=== PATIENT | male | born 1955 | race Caucasian/White ===

== ENCOUNTER → 2018-11-03 14:40 | Outpatient (CLI) | payer OTHER, SELFPAY | PROVIDERS: Family Provider Physician Assistant Medical; PCP Physician Assistant Medical; Visit Provider Family Medicine | DX: R30.0 Dysuria (principal) | CPT/HCPCS: 87086; 87147 ==

== ENCOUNTER → 2018-12-02 12:37 | Outpatient (CLI) | payer OTHER, SELFPAY ==
--- NOTE | 2018-12-02 | DI.US.S_ITS ---
PROCEDURE: US RENAL COMPLETE INDICATIONS: URINARY FREQUENCY AND DYSURIA TECHNIQUE: Real-time scanning was performed of the kidneys and bladder, with image documentation. COMPARISON: None. FINDINGS: Kidneys: Kidneys are normal in size. Right kidney measures 10.4 cm long; left kidney measures 10.1 cm long. Right renal cortical thickness is 1.6 cm; left renal cortical thickness is 1.1 cm. Renal cortical echotexture is normal. No hydronephrosis or nephrolithiasis. No suspicious solid mass lesions. Bladder: Pre-void bladder volume is 329 mL. Post-void residual is 145 mL. Pre-void images demonstrate no intraluminal masses or stones. On pre-void images, both ureteral jets are noted with color Doppler interrogation. (Of note, ureteral jets may not be detectable in up to 25% of cases due to insufficient differences in specific gravity between ureteral and bladder urine). There is a cystic structure adjacent to the left bladder base, suspicious for a ureterocele. Miscellaneous: No free pelvic fluid. IMPRESSION: 1. Normal ultrasound appearance of kidneys. No renal stone hydronephrosis. 2. Significant post void residual (145 mL). 3. Suspect a left ureterocele. Dictated by: Virginie Mckinley M.D. on 12/02/2018 at 17:06 Approved by: Virginie Mckinley M.D. on 12/02/2018 at 17:08
== END ==
PROVIDERS: PCP Physician Assistant Medical; Visit Provider Family Medicine
DX: R35.0 Frequency of micturition (principal); R30.0 Dysuria
CPT/HCPCS: 76770

== ENCOUNTER → 2019-03-25 09:53 | Outpatient (CLI) | payer OTHER, SELFPAY ==
--- NOTE | 2019-03-25 | DI.RAD.S_ITS ---
PROCEDURE: XR LUMBAR SPINE 2-3V INDICATIONS: BACK PAIN/ LEFT LOWER LEG PAIN TECHNIQUE: 3 views of the lumbar spine were acquired. COMPARISON: [facility], , L-SPINE 2-3 VIEWS, 08/17/2015, 11:44. FINDINGS: Bones: No fracture or focal osseous destruction. Multilevel degenerative endplate sclerosis and spurring. Diffuse facet arthropathy. Grade 1 anterolisthesis of L5 on S1 as before. Moderate narrowing of the L5-S1 disc space. Mild narrowing of the remaining lumbar disc spaces. Lucency projecting at the L5 pars interarticularis suggesting pars defects Soft tissues: Overlying bowel gas pattern is normal. No suspicious soft tissue calcifications. IMPRESSION: Diffuse lumbar spondylosis, most pronounced at L5-S1 where there is grade 1 anterolisthesis. No interval change. Multilevel facet arthropathy. Dictated by: Daryl Agrawal M.D. on 03/25/2019 at 13:40 Approved by: Daryl Agrawal M.D. on 03/25/2019 at 13:42
--- NOTE | 2019-03-25 | DI.RAD.S_ITS ---
PROCEDURE: XR TIBIA FIBULA RT 2V INDICATIONS: BACK PAIN/ LEFT LOWER LEG PAIN TECHNIQUE: 2 views of the tibia and fibula were acquired. COMPARISON: None. FINDINGS: Bones: No fractures or dislocations. No suspicious bony lesions. Soft tissues: No suspicious soft tissue calcifications or masses. IMPRESSION: No fracture Dictated by: Daryl Agrawal M.D. on 03/25/2019 at 12:45 Approved by: Daryl Agrawal M.D. on 03/25/2019 at 12:46
== END ==
PROVIDERS: PCP Family Medicine; Visit Provider Family Medicine
DX: M54.9 Dorsalgia, unspecified (principal); M79.662 Pain in left lower leg; M47.817 Spondylosis without myelopathy or radiculopathy, lumbosacral region; M43.17 Spondylolisthesis, lumbosacral region
CPT/HCPCS: 72100; 73590

== ENCOUNTER → 2019-03-31 18:56 | Outpatient (CLI) | payer OTHER, SELFPAY ==
--- NOTE | 2019-03-31 18:58 | DI.MRI.S_ITS ---
PROCEDURE: MR LUMBAR SPINE WO CON INDICATIONS: LUMBAR SPINE RADICULOPATHY TECHNIQUE: Noncontrast sagittal T1 spin echo and T2 fast echo, sagittal STIR, axial T1 and T2 fast spin echo through the lumbar spine. In cases with scoliosis, additional coronal T2 fast spin echo may be performed. COMPARISON: [facility], , L-SPINE 2-3 VIEWS, 08/17/2015, 11:44. [facility], , XR LUMBAR SPINE 2-3V, 03/25/2019, 10:04. FINDINGS: Image quality: Excellent. Alignment and Curvature: There is grade 1 anterolisthesis seen at L5-S1, with associated bilateral pars defects. Bone Marrow: Marrow is of normal overall signal. No acute vertebral body compression fractures. Scattered foci are seen, which are hyperintense on T1-weighted and T2-weighted imaging, which are most consistent with benign vertebral body hemangiomas. Spinal Cord: Conus medullaris terminates at the L1 level. Visualized cord demonstrates normal signal and size. Paraspinous Soft Tissues: No paravertebral masses. T12-L1: Normal appearance. L1-L2: Normal appearance. L2-L3: The disc height is well-preserved. Loss of disc signal is seen at this level. Mild to moderate disc bulge is seen, which is eccentric to the right. There is mild to moderate right-sided and minimal left-sided neural foraminal narrowing seen. Mild central canal narrowing is seen. There is a focal annular fissure seen posteriorly. L3-L4: The disc height is well-preserved. Loss of disc signal is seen at this level. Mild to moderate disc bulge is seen, which is eccentric to the right. There is mild left-sided and moderate right-sided neural foraminal narrowing seen. Lmti-eo-vpjjvlyn central canal narrowing is seen. L4-L5: Mild loss of disc height is seen. Loss of disc signal is seen. Moderate disc bulge is seen, which is eccentric to the left. [id number]-rg-[id number] facet hypertrophy is seen. There is moderate right-sided and moderate to severe left-sided neural foraminal narrowing seen. There is a degree of compression seen upon the exiting left L4 nerve root. Moderate central canal narrowing is seen. L5-S1: Moderate loss of disc height is seen. Loss of disc signal is seen. Mild to moderate disc bulge is seen. Mild facet joint hypertrophy is seen. There is moderate right-sided and mild left-sided neural foraminal narrowing seen. Mild central canal narrowing is seen. IMPRESSION: Lumbar spine degenerative changes are seen, which are most prominent inferiorly. Dictated by: Jaiden Garcia M.D. on 04/01/2019 at 8:48 Approved by: Jaiden Garcia M.D. on 04/01/2019 at 8:59
== END ==
PROVIDERS: PCP Family Medicine; Visit Provider Family Medicine
DX: M47.26 Other spondylosis with radiculopathy, lumbar region (principal)
CPT/HCPCS: 72148

== ENCOUNTER → 2020-12-12 16:52 | Outpatient (CLI) | payer OTHER, SELFPAY ==
[2020-12-14 13:09] LABS: Lamotrigine Lamictal 14.2 ug/mL (2.0-20.0)
== END ==
PROVIDERS: PCP Family Medicine; Referring Provider Family Medicine; Visit Provider Family Medicine
DX: Z51.81 Encounter for therapeutic drug level monitoring (principal)
CPT/HCPCS: 36415; 80175

== ENCOUNTER 2021-03-08 04:13 | Emergency (ER) | payer OTHER, MEDICARE, SELFPAY ==
[2021-03-08] VITALS (7 sets, daily range): BP systolic 151–153; BP diastolic 72–86; PULSE 65–81; RESP 12–22; TEMP 36.6; O2SAT 94–99; BMI 25.0
--- NOTE | 2021-03-08 04:32 | ED_ITS ---
HPI - Neuro Symptoms/Deficit General Chief Complaint: Neuro Symptoms/Deficit Stated Complaint: Tremors Time Seen by Provider: 03/08/21 04:15 History of Present Illness HPI Narrative: 65-year-old gentleman with a history of seizure disorder on Neurontin and lamotrigine as well as BPH woke up at his usual time this morning, 230 to arrive at work at 6 any noticed significant increased overall tremor. Was concerning enough to him that he called medics to bring him to the emergency department. He describes and unpleasant total body tremor that is very different from any seizures are partial seizures that he has had in the past. He states that he is otherwise been well was planning to go to work this morning. No recent fevers, other illnesses, headaches, seizures, chest pain, palpitations, abdominal pain, vomiting, diarrhea, dysuria. He has been under increased stress in his is currently in a local detention facility. He works at [employer] Previous Rx's Medication Instructions Recorded gabapentin [Neurontin] 600 mg PO TID #275 tab 03/31/17 lamotrigine 200 mg tablet See Rx Instructions PO .COMPLEX 07/19/18 #225 tab Allergies Allergy/AdvReac Type Severity Reaction Status Date / Time hydrocodone AdvReac Nausea Verified 03/08/21 04:34 Review of Systems Review of Systems Narrative: Remainder of complete review of systems is otherwise unremarkable except for that included in the HPI. Patient History Medical History BPH (benign prostatic hyperplasia) Seizure disorder Social History Smoking Status: Never smoker Exam Narrative Exam Narrative: General: Healthy appearing, in mild distress. Able to give a complete and coherent history. Well-nourished well-developed HEENT: Moist mucous membranes, normal sclera with reactive pupils, Respiratory: Lungs are clear to auscultation, no wheezing no rales no rhonchi. Full and symmetrical air movement Cardiac: Regular rate and rhythm no murmurs no bruits Abdomen: Soft, nontender, good bowel tones, no flank pain Skin: Warm and dry, no rashes Neurologic: Fine tremor at rest and with intention involving upper and lower extremities. Wide based shuffling gait, mild nystagmus with extreme lateral gaze. Otherwise neurologically intact with no obvious asymmetries Extremities: No trauma, well perfused Psych: Cooperative, appropriate insight and affect Initial Vital Signs Initial Vital Signs: Vital Signs Temperature 97.8 F 03/08/21 04:15 Pulse Rate 81 03/08/21 04:15 Respiratory Rate 17 03/08/21 04:15 Blood Pressure 152/72 H 03/08/21 04:15 Pulse Oximetry 97 03/08/21 04:15 Course Orders Ordered: ED Orders 03/08/21 04:25 Complete Blood Count AUTO DIFF Stat Comprehensive Metabolic Panel Stat Gabapentin Stat Lamotrigine Lamictal Stat Magnesium Stat Discontinued Medications Diazepam (Diazepam 10 Mg/2 Ml Syringe) 2 mg IV NOW ONE Stop: 03/08/21 04:25 Last Admin: 03/08/21 04:37 Dose: 2 mg Documented by: REGINA Vital Signs Vital signs: Vital Signs - 8 hr 03/08/21 04:15 03/08/21 04:18 03/08/21 04:30 Temperature 97.8 F Pulse Rate 81 78 75 Respiratory Rate 17 20 17 Blood Pressure 152/72 H Pulse Oximetry 97 97 99 03/08/21 05:00 03/08/21 05:24 03/08/21 05:25 Temperature Pulse Rate 71 67 67 Respiratory Rate 21 17 22 Blood Pressure 153/86 H Pulse Oximetry 94 98 97 03/08/21 05:30 Temperature Pulse Rate 65 Respiratory Rate 12 Blood Pressure 151/86 H Pulse Oximetry 97 MDM - Neuro Symptoms/Deficit Medical Records Attestation: I reviewed the patient's medical records. Lab Data Attestation: I reviewed the patient's lab results. Result diagrams: 03/08/21 04:25 03/08/21 04:25 Labs: Lab Results 03/08/21 03/08/21 Range/Units 04:25 04:25 WBC 5.6 (4.5-11.0) X10^3/uL RBC 4.62 (4.5-5.9) X10^6/uL Hgb 14.1 (13.5-17.5) g/dL Hct 42.3 (41-53) % MCV 91.5 (80-100) fL MCH 30.6 (26-34) PG MCHC 33.4 (30-36) % RDW 13.1 (11.6-14.8) % Plt Count 207 (150-400) X10^3/uL Neut % (Auto) 47.6 L (50-75) % Lymph % (Auto) 41.1 H (25-40) % Early % (Auto) 7.3 (3-14) % Eos % (Auto) 3.7 (2-4) % Baso % (Auto) 0.3 (0-2) % Neut # (Auto) 2700 (2355-4647) /uL Lymph # (Auto) 2300 (7670-7971) /uL Early # (Auto) 400 (0-900) /uL Eos # (Auto) 200 (0-450) /uL Baso # (Auto) 0 (0-100) /uL Sodium 135 L (137-145) mmol/L Potassium 3.8 (3.4-5.1) mmol/L Chloride 103 (98-107) mmol/L Carbon Dioxide 27 (22-32) mmol/L BUN 14 (9-20) mg/dL Creatinine 0.87 (0.66-1.25) mg/dL Estimated GFR > 60.0 (>60) mL/min BUN/Creatinine Ratio 16.1 (6-22) Glucose 112 H (80-110) mg/dL Calcium 9.1 (8.4-10.2) mg/dL Magnesium 2.1 (1.6-2.3) mg/dL Total Bilirubin 0.5 (0.2-1.3) mg/dL AST 26 (17-59) IU/L ALT 18 (<50) IU/L Alkaline Phosphatase 46 (38-126) U/L Total Protein 6.7 (6.3-8.2) g/dL Albumin 4.0 (3.5-5.0) g/dL Globulin 2.7 (1.7-4.1) g/dL Albumin/Globulin Ratio 1.5 (1.0-2.8) Urine Dip Bedside Urine Glucose Negative Bedside Urine Bilirubin - Negative Bedside Urine Ketone - Negative Urine Specific [place] 1.015 Bedside Urine Occult Blood - Negative Bedside Urine pH 6.5 Bedside Urine Protein - Negative Bedside Urine Urobilinogen - Negative Bedside Urine Nitrite - Negative Bedside Urine Leukocytes - Negative Esterase ECG Data Attestation: I personally reviewed and interpreted this ECG as follows: Interpretation: Medic tracing Sinus rhythm at a rate of 76 Leftward axis Normal intervals No acute ischemic changes MDM Narrative Medical decision making narrative: Lab work is entirely unremarkable. Both gabapentin and lamotrigine levels have been drawn to be followed up by his primary care physician. Gabapentin does have tremor, diplopia, nystagmus and ataxia all as a side effects at excessive doses. He does not however have any significant change to renal or hepatic function has not changed gabapentin dose as an acute explanation for the change in the last 24 hours. At this point there is no evidence of infection, sepsis of any sort or seizure. On further questioning, he notes that he started a new medication yesterday and has discontinued the alfuzosin. 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 With the acute onset of parkinsonian like side effects am concerned for either but toxidrome or adverse interaction with the new medication that was started yesterday. Will ask him to follow-up with his primary care physician particularly regarding the gabapentin and Lamictal blood levels that should be available in the next 2-3 days. Discharge Plan Departure Patient Disposition: Home Clinical Impression: Adverse drug interaction Qualifiers: Encounter type: initial encounter Qualified Code(s): T50.905A - Adverse effect of unspecified drugs, medicaments and biological substances, initial encounter Instructions: DI for Adverse Drug Reaction -- Other Activity Restrictions/Additional Instructions: Thank you for coming in today Your lab work is very reassuring and you have no clinical signs of a stroke. With the increased overall tremor, the ataxia(walking difficulties), the slightly blurred vision and the mild headache it seems that your having an adverse medication reaction. He stated that you stopped the alfuzosin (a medication even on for number of years) and started a new medication yesterday. I suspect that this new medication is the problem. It is unclear whether it is the new medication itself or whether it is causing interactions with your gabapentin and lamotrigine. Please stop this new medication completely. I am also going to ask you to not take any gabapentin today. Please do take your lamotrigine today. As long as your symptoms are improving you can restart the gabapentin tomorrow. Please contact Dr Melo to schedule an appointment for early next week. If your symptoms worsen, please come back to the ER. Prescriptions: No Action gabapentin [Neurontin] 600 MG tablet 600 mg PO TID Qty: 275 RF: 3 lamotrigine [Lamictal] 200 mg tablet See Rx Instructions PO .COMPLEX Qty: 225 RF: 0 Referrals: Amy Melo MD [Primary Care Provider] -
[2021-03-08] MEDS: diazePAM 10 MG/2 ML SYRINGE 2 MG IV (04:37)
[2021-03-08 04:38] LABS: Add Manual Diff / Slide Review NO; Basophils Absolute Auto 0 /uL (0-100); Basophils Percent Auto 0.3 % (0-2); Eosinophils Absolute Auto 200 /uL (0-450); Eosinophils Percent Auto 3.7 % (2-4); Hematocrit 42.3 % (41-53); Hemoglobin 14.1 g/dL (13.5-17.5); Lymphocytes Absolute Auto 2300 /uL (1100-4500); Lymphocytes Percent Auto 41.1 % (25-40); Mean Corpuscular HGB Conc 33.4 % (30-36); Mean Corpuscular Hemoglobin 30.6 PG (26-34); Mean Corpuscular Volume 91.5 fL (80-100); Monocytes Absolute Auto 400 /uL (0-900); Monocytes Percent Auto 7.3 % (3-14); Neutrophils Absolute Auto 2700 /uL (1500-7000); Neutrophils Percent Auto 47.6 % (50-75); Platelet Count 207 X10^3/uL (150-400); Red Blood Cell Count 4.62 X10^6/uL (4.5-5.9); Red Cell Distribution Width 13.1 % (11.6-14.8); White Blood Cell Count 5.6 X10^3/uL (4.5-11.0)
[2021-03-08 04:48] LABS: Alanine Aminotransferase 18 IU/L (<50); Albumin Globulin Ratio 1.5 (1.0-2.8); Alkaline Phosphatase 46 U/L (38-126); Aspartate Aminotransferase 26 IU/L (17-59); BUN Creatinine Ratio 16.1 (6-22); Bilirubin Total 0.5 mg/dL (0.2-1.3); Blood Urea Nitrogen 14 mg/dL (9-20); Calcium 9.1 mg/dL (8.4-10.2); Carbon Dioxide 27 mmol/L (22-32); Chloride 103 mmol/L (98-107); Estimated Glomerular Filt Rate > 60.0 mL/min (>60); Globulin 2.7 g/dL (1.7-4.1); Glucose 112 mg/dL (80-110); HEMOLYSIS 18 (0-50); Magnesium 2.1 mg/dL (1.6-2.3); Potassium 3.8 mmol/L (3.4-5.1); Sodium 135 mmol/L (137-145); Total Protein 6.7 g/dL (6.3-8.2)
--- NOTE | 2021-03-08 04:50 | PC.NURSE ---
On arrival he was noted to have fine tremors of trunk and extremeties,not his normal seizure activity he said,no pain or h/a.no nausea.
[2021-03-11 13:40] LABS: Gabapentin 2.8 ug/mL (4.0-16.0); Lamotrigine Lamictal 23.4 ug/mL (2.0-20.0)
== END 2021-03-08 07:05 | disposition home or self-care (01) ==
PROVIDERS: Emergency Provider Emergency Medicine; PCP Family Medicine
DX: R25.1 Tremor, unspecified (principal); T50.905A Adverse effect of unspecified drugs, medicaments and biological substances, initial encounter
CPT/HCPCS: 36415; 80053; 80171; 80175; 81003; 83735; 85025; 96374; 99284; J3360

== ENCOUNTER → 2021-07-30 07:54 | Outpatient (CLI) | payer MEDICARE, SELFPAY ==
[2021-07-30 09:04] LABS: Cholesterol 258 mg/dL (140-199); HDL Cholesterol 108 mg/dL (40-60); LDL Cholesterol Calculated 139 mg/dL (<100); Triglycerides 57 mg/dL (35-150)
[2021-07-30 09:33] LABS: Prostate Specific Antigen 3.85 ng/mL (0.10-4.00)
[2021-08-01 13:49] LABS: Gabapentin 6.1 ug/mL (4.0-16.0); Lamotrigine Lamictal 16.4 ug/mL (2.0-20.0)
== END ==
PROVIDERS: PCP Registered Nurse; Referring Provider Registered Nurse; Visit Provider Registered Nurse
DX: G40.909 Epilepsy, unspecified, not intractable, without status epilepticus (principal); N40.0 Benign prostatic hyperplasia without lower urinary tract symptoms; Z82.49 Family history of ischemic heart disease and other diseases of the circulatory system
CPT/HCPCS: 36415; 80061; 80171; 80175; 84153

== ENCOUNTER → 2021-10-31 14:48 | Outpatient (CLI) | payer OTHER, SELFPAY ==
[2021-10-31 15:45] LABS: Alanine Aminotransferase 22 IU/L (<50); Albumin 4.4 g/dL (3.5-5.0); Albumin Globulin Ratio 1.5 (1.0-2.8); Alkaline Phosphatase 71 U/L (38-126); Aspartate Aminotransferase 26 IU/L (17-59); BUN Creatinine Ratio 13.5 (6-22); Bilirubin Total 0.4 mg/dL (0.2-1.3); Blood Urea Nitrogen 14 mg/dL (9-20); Calcium 9.8 mg/dL (8.4-10.2); Carbon Dioxide 30 mmol/L (22-32); Chloride 100 mmol/L (98-107); Estimated Glomerular Filt Rate > 60.0 mL/min (>60); Globulin 2.9 g/dL (1.7-4.1); Glucose 109 mg/dL (80-110); HEMOLYSIS 16 (0-50); Potassium 4.2 mmol/L (3.4-5.1); Sodium 137 mmol/L (137-145); Total Protein 7.3 g/dL (6.3-8.2)
== END ==
PROVIDERS: PCP Registered Nurse; Referring Provider Registered Nurse; Visit Provider Registered Nurse
DX: R73.9 Hyperglycemia, unspecified (principal)
CPT/HCPCS: 36415; 80053

== ENCOUNTER → 2021-11-01 16:33 | Outpatient (CLI) | payer OTHER, SELFPAY ==
[2021-11-04 18:14] LABS: Lamotrigine Lamictal 14.4 ug/mL (2.0-20.0)
== END ==
PROVIDERS: PCP Registered Nurse; Visit Provider Registered Nurse
DX: G40.909 Epilepsy, unspecified, not intractable, without status epilepticus (principal)
CPT/HCPCS: 80175

== ENCOUNTER → 2024-05-16 10:15 | Outpatient (CLI) | payer MEDICARE, SELFPAY ==
--- NOTE | 2024-05-16 10:21 | DI.RAD.S_ITS ---
PROCEDURE: XR CHEST 2V INDICATIONS: COUGH TECHNIQUE: 2 views of the chest were acquired. COMPARISON: None. FINDINGS: Surgical changes and devices: None. Lungs and pleura: Lungs are clear. No pleural effusions or pneumothorax. Mediastinum: Mediastinal contours are normal. Heart size is normal. Bones and chest wall: No suspicious bony abnormalities. Soft tissues appear unremarkable. IMPRESSION: No acute pulmonary process. Dictated by: Cookie Dexter M.D. on 05/16/2024 at 15:38 Approved by: Cookie Dexter M.D. on 05/16/2024 at 15:39
== END ==
PROVIDERS: Referring Provider Internal Medicine; Visit Provider Internal Medicine
DX: R05.9 Cough, unspecified (principal)
CPT/HCPCS: 71046